=== PATIENT | male | born 1980 | race Caucasian/White ===

== ENCOUNTER → 2020-12-27 | Outpatient (CLI) | payer OTHER ==
--- NOTE | 2020-12-27 11:14 | CT ---
EXAMINATION TYPE: CT brain wo con DATE OF EXAM: 12/27/2020 COMPARISON: None HISTORY: 40-year-old male worsening headaches TECHNIQUE: Examination was done in axial plane without intravenous contrast. Coronal and sagittal r econstructions performed. CT DLP: 1043.8 mGycm Automated exposure control for dose reduction was used. FINDINGS: There is no evidence of acute intracranial hemorrhage, or acute ischemic changes. There is no efface ment of cerebral sulci or basal subarachnoid cisterns. There is no hydrocephalus. There is no midli ne shift. Eaton-white matter distinction is preserved. There is a large retrocerebellar CSF space measuring up to 6.6 cm craniocaudal by 7.5 cm wide by 3.6 cm AP. There is mass effect onto the back side of the cerebellum but no cerebellar tonsillar position or effacement of the fourth ventricle. The CSF space extends up along the undersurface of the tentor ium cerebelli. Also, there is a partially empty sella noted. Paranasal sinuses and mastoid air cells well pneumatized. Orbits and globes are intact. IMPRESSION: 1. Large retrocerebellar CSF space measuring 7.5 x 6.6 x 3.6 cm extending up along the undersurface o f the tentorium cerebelli. This appears to exert some mass effect onto the back side of the cerebellu m but there is no herniation or loss of the fourth ventricle. Findings suggest an arachnoid cyst. Con photographic hand developer further neurosurgical evaluation. 2. Partially empty sella probably an incidental finding. Given the patient's chronic headaches, corre late with funduscopic exam to exclude the possibility of pseudotumor cerebri. This is considered unli marija given the patient demographics. 3. Otherwise, no acute intracranial abnormality seen.
--- NOTE | 2020-12-27 11:21 | CT ---
EXAMINATION TYPE: CT angio head DATE OF EXAM: 12/27/2020 COMPARISON: CT brain same day HISTORY: 40-year-old male I60.9, R51.9, worsening headaches TECHNIQUE: Contiguous axial scanning of the brain performed with IV Contrast, patient injected with 1 00 mL of Isovue 370. Coronal/sagittal MIP reconstructions performed. 3-D reconstructions generated on a dedicated independent workstation. CT DLP: 383.2 mGycm Automated exposure control for dose reduction was used. FINDINGS: The vertebral and basilar arteries as well as the remainder of the posterior circulation are patent. The internal carotid arteries and remainder of the anterior circulation are patent. Slightly hypoplastic A1 segment left anterior cerebral artery compatible with normal anatomic variati on. Dural venous sinuses are patent. Slightly hypoplastic left transverse sinus. There is minimal fusiform enlargement of the upper third basilar artery with a caliber of 3.5 mm. The lower basilar artery has a caliber of 3.0 mm. Otherwise, no aneurysmal change. IMPRESSION: 1. VERY MINIMAL FUSIFORM ENLARGEMENT OF THE UPPER THIRD BASILAR ARTERY WITH A CALIBER OF 3.5 MM. PROB ABLY OF LITTLE CLINICAL SIGNIFICANCE. THE LOWER BASILAR ARTERY HAS A CALIBER OF 3.0 MM. 2. NORMAL ANATOMIC VARIATION WITH A HYPOPLASTIC A1 SEGMENT LEFT TENZIN. 3. NO LARGE VESSEL INTRACRANIAL ARTERIAL OCCLUSION, SIGNIFICANT STENOSIS, OR ANEURYSMAL CHANGE IS OTH ERWISE SEEN.
== END ==
LOC: RADCTMAIN 10:00
PROVIDERS: ATTEND Psychiatry & Neurology Neurology
DX: G93.89 Other specified disorders of brain (principal)
CPT/HCPCS: 70496; 70450; Q9967